=== PATIENT | female | born 1955 ===

== ENCOUNTER 2021-06-09 11:11 | Inpatient (IN) | payer OTHER ==
[~2021-06-09] VITALS: Ht 152.4 cm; Wt 73.5 kg
[2021-06-09] MEDS ORDERED: SYNTHROID100 MCG PO (11:39)
--- NOTE | 2021-06-09 11:40 | NUR ---
SE RECIBE PTE ALERTA Y ORIENTADA X3,REFIERE TENER DIARREAS,DEBILIDAD ,SANGRADO INTERNO POR UN POLIPO EN EL COLON.
--- NOTE | 2021-06-09 18:00 | NUR ---
1600 SE CONTACTA A PERSONAL DE [facility] PARA REQUIZAR 2 UNIDADES DE PRBCS Y CONOCER SI PTE TIENE RECORD PREVIO. REFIERE QUE PTE NO POSEE RECORD EN [facility]. 1625 SE COLECTAN TUBO PARA TIPO Y ABDIRAHMAN, BAJO MEDIDAS ASEPTICAS. 1630 SE COLECTAN TUBOS PILOTOS PARA DOS UNIDADES DE PRBC'S. SE ENTREGAN A PERSONAL DE [facility] , REQUISICION. 1720 DE [facility] REFIERE PTE PRESENTA PANEL DE ANTICUERPOS POSITIVOS. ORDENA COLECTAR TUBOS PARA PANEL DE ANTICUERPO. 1740 SE COLECTAN TUBOS PARA PANEL DE ANTICUERPOS, BAJO MEDIDAS ASEPTICAS. SE PREPARA REQUISICION Y SE ENTREGAN EN LABORATORIO. 1748 SE COMUNICA A [facility] Y SE NOTIFICA QUE PANEL DE ANTICUERPOS SE ENCUENTRA DISPONIBLE EN LABORATORIO EN [facility] PARA RECOGIDO.
[2021-06-11] MEDS ORDERED: BUPROPION XL150 MG (11:41)
[2021-06-11] MEDS ORDERED: FERROUS SULFAT325 MG (11:41)
[2021-06-11] MEDS ORDERED: LORATADINE10 MG (11:41)
[2021-06-11] MEDS ORDERED: SUCRALFATE1 GM/10 ML (11:42)
[2021-06-11] MEDS ORDERED: AMOX-CLAV 875-1 EAC1 (11:42)
[2021-06-11] MEDS ORDERED: FLONASE16 GM (11:42)
== END 2021-06-13 19:40 | disposition home or self-care (01) | DRG 804 ==
LOC: ER 11:11 → MEDI 19:07 → MEDJ 06-12 13:11
PROVIDERS: ADMIT Internal Medicine; ATTEND Internal Medicine
PROC: 30233N1 Transfusion of Nonautologous Red Blood Cells into Peripheral Vein, Percutaneous Approach (ICD-10-PCS; principal; 2021-06-10)
PROC: 079H3ZX Drainage of Right Inguinal Lymphatic, Percutaneous Approach, Diagnostic (ICD-10-PCS; 2021-06-11)
DX: D50.8 Other iron deficiency anemias (principal); E03.8 Other specified hypothyroidism; R59.0 Localized enlarged lymph nodes

== ENCOUNTER 2021-08-05 15:23 | Inpatient (IN) | payer OTHER ==
[~2021-08-05] VITALS: Ht 152.4 cm; Wt 72.6 kg
[~2021-08-05 15:23] MED LIST: AMOX-CLAV 875-1 EAC1; BUPROPION XL150 MG; FERROUS SULFAT325 MG; FLONASE16 GM; LORATADINE10 MG; SUCRALFATE1 GM/10 ML; SYNTHROID100 MCG PO
[2021-08-08] MEDS ORDERED: FLONASE16 GM (08:14)
[2021-08-08] MEDS ORDERED: BUMETANIDE0.5 MG (08:14)
[2021-08-08] MEDS ORDERED: BUPROPION XL150 MG (08:15)
[2021-08-08] MEDS ORDERED: LORATADINE10 MG (08:15)
[2021-08-20] MEDS ORDERED: PRE PROTEIN1 EACH PO (13:43)
[2021-08-20] MEDS ORDERED: BUPROPION XL150 MG PO (13:43)
[2021-08-20] MEDS ORDERED: PANTOPRAZOLE SO40 MG PO (13:43)
[2021-08-20] MEDS ORDERED: LEVOTHYROXINE125 MCG PO (13:44)
[2021-08-20] MEDS ORDERED: CLOTRIMAZOLE45 G1 TOP (13:45)
[2021-08-20] MEDS ORDERED: Neurin-Sl Tablet Sl SL (13:46)
[2021-08-20] MEDS ORDERED: THIAMINE HCL100 MG PO (13:46)
[2021-08-20] MEDS ORDERED: LASIX20 MG PO (13:48)
== END 2021-09-07 23:09 | disposition expired | DRG 423 ==
LOC: ER 15:23 → MEDJ 08-06 15:48
PROVIDERS: ADMIT Internal Medicine; ATTEND Internal Medicine
PROC: 30233N1 Transfusion of Nonautologous Red Blood Cells into Peripheral Vein, Percutaneous Approach (ICD-10-PCS; 2021-08-06)
PROC: 0DBL8ZX Excision of Transverse Colon, Via Natural or Artificial Opening Endoscopic, Diagnostic (ICD-10-PCS; 2021-08-08)
PROC: BW4GZZZ Ultrasonography of Pelvic Region (ICD-10-PCS; 2021-08-10)
PROC: 02HV33Z Insertion of Infusion Device into Superior Vena Cava, Percutaneous Approach (ICD-10-PCS; 2021-08-11)
PROC: 30233R1 Transfusion of Nonautologous Platelets into Peripheral Vein, Percutaneous Approach (ICD-10-PCS; 2021-08-12)
PROC: 0D9W40Z Drainage of Peritoneum with Drainage Device, Percutaneous Endoscopic Approach (ICD-10-PCS; 2021-08-13)
PROC: BW40ZZZ Ultrasonography of Abdomen (ICD-10-PCS; 2021-08-15)
PROC: 0DB64ZX Excision of Stomach, Percutaneous Endoscopic Approach, Diagnostic (ICD-10-PCS; 2021-08-19)
PROC: BW21ZZZ Computerized Tomography (CT Scan) of Abdomen and Pelvis (ICD-10-PCS; 2021-08-21)
PROC: B54DZZZ Ultrasonography of Bilateral Lower Extremity Veins (ICD-10-PCS; 2021-08-26)
PROC: BW24ZZZ Computerized Tomography (CT Scan) of Chest and Abdomen (ICD-10-PCS; 2021-08-26)
PROC: BW2110Z Computerized Tomography (CT Scan) of Abdomen and Pelvis using Low Osmolar Contrast, Unenhanced and Enhanced (ICD-10-PCS; 2021-08-26)
PROC: 3E0F7SF Introduction of Other Gas into Respiratory Tract, Via Natural or Artificial Opening (ICD-10-PCS; 2021-08-28)
PROC: B24BYZZ Ultrasonography of Heart with Aorta using Other Contrast (ICD-10-PCS; 2021-08-28)
PROC: 05HY33Z Insertion of Infusion Device into Upper Vein, Percutaneous Approach (ICD-10-PCS; 2021-08-29)
PROC: 07BC3ZX Excision of Pelvis Lymphatic, Percutaneous Approach, Diagnostic (ICD-10-PCS; principal; 2021-09-02)
PROC: 0W9B3ZX Drainage of Left Pleural Cavity, Percutaneous Approach, Diagnostic (ICD-10-PCS; 2021-09-02)
DX: K76.7 Hepatorenal syndrome (principal); A41.9 Sepsis, unspecified organism; N17.8 Other acute kidney failure; J90 Pleural effusion, not elsewhere classified; N04.9 Nephrotic syndrome with unspecified morphologic changes; E87.2 Acidosis; D68.9 Coagulation defect, unspecified; C91.50 Adult T-cell lymphoma/leukemia (HTLV-1-associated) not having achieved remission; D12.3 Benign neoplasm of transverse colon; D12.4 Benign neoplasm of descending colon; K70.31 Alcoholic cirrhosis of liver with ascites; D63.8 Anemia in other chronic diseases classified elsewhere; R59.1 Generalized enlarged lymph nodes; K76.9 Liver disease, unspecified; D64.9 Anemia, unspecified; K63.89 Other specified diseases of intestine; D69.6 Thrombocytopenia, unspecified; K29.60 Other gastritis without bleeding; Z66 Do not resuscitate; K57.30 Diverticulosis of large intestine without perforation or abscess without bleeding; R97.1 Elevated cancer antigen 125 [CA 125]; F43.23 Adjustment disorder with mixed anxiety and depressed mood; R53.81 Other malaise; E03.9 Hypothyroidism, unspecified; B35.4 Tinea corporis